=== PATIENT | female | born 2000 | race Two or more races ===

== ENCOUNTER 2024-11-22 14:16 | Emergency (ER) | payer BC, OTHER ==
[~2024-11-22] VITALS: Ht 165.1 cm; Wt 62.2 kg
--- NOTE | 2024-11-22 16:13 | ED.PDOC ---
General HPI Comments Juana Martínez is a 24-year-old female, with past medical history of hemorrhoids, The patient came to the ED with chief complain of 2 years of on and off pelvic pain and vaginal prolapse that prevent her from having bowel movements, producing hemorrhoids do to strain when she has a bowel movement, also is associated with urinary incontinence. The patient has been seen by [facility] and general surgeon for this problem and the patient has requested a colostomy to relief the rectal problem per the patient neither OBG/YN or surgery recommends the surgery. Today, The patient came to the ED due to increase in pelvic pain and rectal pain / and occasional bleeding while wiping. The patient denies diarrhea, constipation, hematochezia, dysuria, frequency or other symptoms. The patient will be further assessed. Chief Complaint: Pelvic Pain Time Seen by MD: 14:28 Reviewed notes: Nurses Notes, Medications, Allergies Allergies: Coded Allergies: Amoxicillin (Verified Allergy, Unknown, 11/22/24) Vancomycin (Verified Allergy, Unknown, 11/22/24) Information Source: Patient Mode of Arrival: Ambulatory Severity: Mild Timing: Months Duration: Since onset Onset: Spontaneous Past Medical History Past Medical History (Other): hemorrhoids Surgical History (Other): Hemorrhectomy Family History Family History: Reviewed,noncontributory to illness Social History Smoker: Non-Smoker Alcohol: Denies ETOH Use Drugs: Denies Drug Use Lives In: Home Constitutional: denies: chills, diaphoresis, fatigue, fever, malaise, sweats, weakness, others EENTM: denies: blurred vision, double vision, ear bleeding, ear discharge, ear drainage, ear pain, ear ringing, eye pain, eye redness, hearing loss, mouth pain, mouth swelling, nasal discharge, nose bleeding, nose congestion, nose pain, photophobia, tearing, throat pain, throat swelling, voice changes, others Respiratory: denies: cough, hemoptysis, orthopnea, SOB at rest, shortness of breath, SOB with excertion, stridor, wheezing, others Cardiovascular: denies: chest pain, dizzy spells, diaphoresis, Dyspnea on exertion, edema, irregular heart beat, left arm pain, lightheadedness, palpitations, PND, syncope, others Gastrointestinal: reports: rectal bleeding, rectal pain; denies: abdomen distended, abdominal pain, blood streaked bowels, constipated, diarrhea, dysphagia, difficulty swallowing, hematemesis, melena, nausea, poor appetite, poor fluid intake, vomiting, others Genitourinary: reports: incontinence; denies: abnormal vagina bleeding, burning, dyspareunia, dysuria, flank pain, frequency, hematuria, pain, , vagina discharge, urgency, others Neurological: denies: dizziness, fainting, headache, left sided numbness, left sided weakness, numbness, paresthesia, pre-existing deficit, right sided numbness, right sided weakness, seizure, speech problems, tingling, tremors, weakness, others Musculoskeletal: denies: back pain, gout, joint pain, joint swelling, muscle pain, muscle stiffness, neck pain, others Integumetry: denies: bruises, change in color, change in hair/nails, dryness, laceration, lesions, lumps, rash, wounds, others Allergic/Immunocompromised: denies: Difficulty Healing, Frequent Infections, Hives, Itching, others Hematologic/Lymphatic: denies: anemia, blood clots, easy bleeding, easy bruising, swollen glands, others Endocrine: denies: excessive hunger, excessive sweating, excessive thirst, excessive urination, flushing, intolerance to cold, intolerance to heat, unexplained weight gain, unexplained weight loss, others Psychiatric: denies: anxiety, bipolar disorder, depression, hopeless, panic disorder, schizophrenia, sleepless, suicidal, others Physical Exam General Appearance: No Apparent Distress, Normal HEENT: Normal ENT Inspection, Pharynx Normal, TMs Normal Neck: Full Range of Motion, Non-Tender, Normal, Normal Inspection Respiratory: Chest Non-Tender, Lungs Clear, No Accessory Muscle Use, No Respiratory Distress, Normal Breath Sounds Cardiovascular: No Edema, No JVD, No Murmur, No Gallop, Normal Peripheral Pulses, Regular Rate/Rhythm Breast Exam: Deferred Gastrointestinal: No Organomegaly, Non Tender, No Pulsatile Mass, Normal Bowel Sounds, Soft Genitalia: Deferred Pelvic: Normal External Exam, Other (There is no evident vaginal or uterine prolapse, no active vaginal bleeding or discharge. No prolapse on vasalva manuver (coughing) or urinary incontinence. ) Rectal: Deferred, Normal Exam, Normal rectal tone, Other (No external hemorrhoids, no active bleeding, no rectal prolapse. 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 Was a procedure done?: No Differential Diagnosis Kidney stone (Female): N/A Urinary Problem (Female): Other (Vaginal prolapse, internal hemorroids. ) X-Ray, Labs, Meds, VS Vital Signs Date Time Temp Pulse Resp B/P (MAP) Pulse Ox O2 Delivery O2 Flow Rate FiO2 11/22/24 14:20 99.0 106 18 135/85 98 99.0 X-Ray, Labs, Meds, VS Comment Patient was re-assessed, VS: WNL No vaginal bleeding or prolapse. Time of 1ST Reevaluation: 16:10 Reevaluation 1ST: Unchanged Patient Education/Counseling: Diagnosis, Treatment, Prognosis, Need For Follow Up Family Education/Counseling: No Family Present SEPSIS Sepsis Screen Date sepsis recognized/suspect: Nov 22, 2024 Time Sepsis recognized/suspect: 1424 Recent Procedure: No On Antibiotic Therapy: No Respiratory Rate >20: No Heart Rate >90: Yes Temp<36 C (96.8 F) or >38.3 C: No SBP <90 or MAP <65 mmHG: No New Acute Mental Status Change: No Is the patient on CPAP, BIPAP,: No Vital Signs Date Time Temp Pulse Resp B/P (MAP) Pulse Ox O2 Delivery O2 Flow Rate FiO2 11/22/24 14:20 99.0 106 18 135/85 98 99.0 Departure 1 Departure Time of Disposition: 16:11 Impression: Primary Impression: Vaginal wall prolapse without uterine prolapse Additional Impression: Easily reducible hemorrhoids Disposition: 01 HOME / SELF CARE / HOMELESS Condition: Good Referrals: DANY FIGUEROA DO Additional Instructions: Please read all instructions provided in this packet carefully. You MUST follow-up with your primary care/family doctor in 1 to 2 days. If you are unable to see your primary care/family doctor, please return to our emergency room for re-assessment and re-evaluation in 1 to 2 days. Return to the emergency room here in our facility or to the nearest ER [facility] if your symptoms change or worsen. CONSULTATIONS: you MUST Follow-up for consultation as soon as possible with: -your specialist: [facility] doctor in 1-2 days. You MUST call the consultants office yourself to make an appointment. You may need to arrange that through your insurance and/or your primary/family doctor. If you are unable to see the franchise consultant in 1 to 2 days, you must return to our emergency room (or any other ER of your choice) for re-assessment and re- evaluation. Adequate fluid hydration. Although you have been discharged from the Emergency Department, this does not mean that you have a "clean bill of health". No definitive diagnosis for your symptoms has been made today. It is possible that you are in the process of developing a serious illness. This is why you must return to the ED without fail if any new or worsening symptoms develop. Discharged With: Self Comments Goals of care discussed with the patient > 35 min. Discussed plan of care with Dr. Peralta Code status: Full code PCP: Dr. Geraldine Hoang Plan discussed with: Patient, the patient agrees with the plan. Critical Care Note Critical Care Time?: No Stability Stability form required: No Heart Score Heart Score: Heart Score Response (Comments) Value History N/A 0 EKG N/A 0 Age N/A 0 Risk Factors N/A 0 Troponin N/A 0 Total 0 SHIRLEY STRATTON RESIDENT Nov 22, 2024 16:13
[2024-11-22 17:17] VITALS: BP 141/89; PULSE 96; RESP 17; TEMP 98.3; O2SAT 97
== END 2024-11-22 17:20 | disposition home or self-care (01) ==
LOC: ER 14:16
DX: N81.10 Cystocele, unspecified (principal); K64.9 Unspecified hemorrhoids; Z88.1 Allergy status to other antibiotic agents; Z88.0 Allergy status to penicillin; Z79.899 Other long term (current) drug therapy